=== PATIENT | male | born 1955 | race Caucasian/White ===

== ENCOUNTER 2018-04-04 02:17 | Emergency (ER) | payer BC, OTHER ==
[~2018-04-04] VITALS: Ht 182.9 cm; Wt 106.0 kg
[~2018-04-04 02:17] MED LIST: FLUO15OI15 TP; ISOS30TA9 PO; LISI-232 PO
[2018-04-04] MEDS ORDERED: ketorolac trometh inj. 60 MG/2 ML VIAL IM ONE (02:20)
[2018-04-04] MEDS ORDERED: oxyCODONE/APAP 10/325mg tablet PO ONE (02:20)
[2018-04-04] MEDS ORDERED: diazepam 5mg tablet PO ONE ×2 (02:20→02:45)
[2018-04-04 02:33] VITALS: BP 142/80
[2018-04-04] MEDS ORDERED: HYDR-3973 PO (03:19)
== END 2018-04-04 03:26 | disposition home or self-care (01) ==
LOC: ER 02:17
DX: G89.29 Other chronic pain (principal); M54.5 Low back pain; I10 Essential (primary) hypertension; Z98.890 Other specified postprocedural states; Z79.899 Other long term (current) drug therapy
CPT/HCPCS: 96372; 99284; J1885